=== PATIENT | male | born 1950 | race Two or more races ===

== ENCOUNTER 2017-02-18 23:51 | Emergency (ER) | payer OTHER ==
[~2017-02-18] VITALS: Ht 165.1 cm; Wt 59.0 kg
[2017-02-19 00:02] VITALS: BP 160/138
== END 2017-02-19 01:03 | disposition left against medical advice (07) ==
LOC: ER 23:53
DX: M79.641 Pain in right hand (principal); Z53.21 Procedure and treatment not carried out due to patient leaving prior to being seen by health care provider

== ENCOUNTER 2021-10-30 15:07 | Emergency (ER) | payer SELFPAY ==
[~2021-10-30] VITALS: Ht 170.2 cm; Wt 70.0 kg
[2021-10-30] MEDS ORDERED: SODIUM BICARBONATE 8.4% INJ 50ML SYRINGE IV ONE (15:08)
[2021-10-30] MEDS ORDERED: ATROPINE SULF 1 MG/10ml SYR IV ONE (15:08)
[2021-10-30] MEDS ORDERED: EPINEPHrine HCL 1 MG/10 ML SYRG IV ONE (15:08)
[2021-10-30] MEDS ORDERED: DOPamine 1600mCg/ml 400MG/250ml NSorD5 KIT/BAG IV ONE (15:08)
[2021-10-30] MEDS ORDERED: ROCURONIUM 10MG/ML 10ML VIAL IV ONE (15:26)
[2021-10-30] MEDS ORDERED: ETOMIDATE (2MG/ML) 20ML VIAL IV ONE (15:26)
[2021-10-30] MEDS ORDERED: NOREPINEPHRINE 8 MG/250ML KIT 250 ML IV ONE (15:36)
[2021-10-30] MEDS ORDERED: EPINEPHrine HCL 250 ML IV ONE (15:44)
[2021-10-30 16:00] VITALS: BP 120/76
[2021-10-30] MEDS ORDERED: EPINEPHrine HCL 1 MG/10 ML SYRG ONE ×2 (16:02→16:35)
[2021-10-30] MEDS ORDERED: LIDOCAINE 2%HCL (LOCAL ANESTH.) INJ 20ML MDV ONE (16:05)
[2021-10-30] MEDS ORDERED: IODIXANOL 320MG/ML 100ML BTL IV ONE (16:05)
[2021-10-30] MEDS ORDERED: HEPARIN IN NS 1000Units/500mL 0 ML ONE (16:06)
[2021-10-30] MEDS ORDERED: ATROPINE SULF 1 MG/10ml SYR ONE (16:13)
[2021-10-30] MEDS ORDERED: ANGIOMAX 250 MG VIAL IV ONE (16:13)
[2021-10-30] MEDS ORDERED: SODIUM CHL 0.9% 0 ML ONE (16:13)
[2021-10-30] MEDS ORDERED: NOREPINEPHRINE 8 MG/250ML KIT 250 ML IV SCH (16:15)
[2021-10-30] MEDS ORDERED: DOBUTamine 1000MCG/ML 250 ML IV ONE (16:15)
[2021-10-30] MEDS ORDERED: EPINEPHrine HCL 250 ML IV SCH (16:15)
[2021-10-30] MEDS ORDERED: DOPamine 1600MCG/ML D5W 250 ML IV SCH (16:15)
[2021-10-30 16:55] LABS: INR 1.91 (0.9-1.15)
[2021-10-30 17:08] LABS: Basophils # (auto) 0 10 ^3/uL (0-0.2); Basophils % (auto) 0.1 % (0.0-2.0); Eosinophils # (auto) 0 10 ^3/uL (0-0.8); Eosinophils % (auto) 0.3 % (0.0-7.0); Hematocrit 35.8 % (41.0-53.0); Lymphocytes # (auto) 6.3 10 ^3/uL (0.4-5.4); Lymphocytes % (auto) 53.3 % (10.0-50.0); Mean Corpuscular Hemoglobin 34.1 pg (28.0-32.0); Mean Corpuscular Hgb Conc. 27.8 g/dL (32.0-36.0); Mean Corpuscular Volume 122.7 fL (80.0-100.0); Monocytes # (auto) 0.4 10 ^3/uL (0-1.3); Monocytes % (auto) 3.3 % (0.0-12.0); Neutrophils # (auto) 5.1 10 ^3/uL (1.6-8.6); Red Blood Cells 2.92 10^6/uL (4.5-5.90); Red Cell Distribution Width 21.8 % (11.8-14.3); White Blood Cell 11.9 10^3/uL (4.4-10.8)
[2021-10-30 17:22] LABS: Alkaline Phosphatase 79 U/L (45-117); Aspartate Aminotransferase 1313 U/L (15-37); Bilirubin, Total 0.8 mg/dL (0.2-1.0); GFR African American 36 mL/min; GFR Non-African American 30 mL/min; Total Protein 5.6 g/dL (6.4-8.2)
[2021-10-30 17:40] LABS: Alanine Aminotransferase 1114 U/L (16-61); Anion Gap 23 (5-15); BUN/Creatinine Ratio 8.7; Blood Urea Nitrogen 20 mg/dL (7-18); Chloride 114 mmol/L (98-107); Glucose 329 mg/dL (74-106); Potassium 4.9 mmol/L (3.5-5.1); Sodium 145 mmol/L (136-145)
[2021-10-30 17:41] LABS: Albumin 2.5 g/dL (3.4-5.0); Calcium 8.1 mg/dL (8.5-10.1)
[2021-10-30 17:42] LABS: Carbon Dioxide 8 mmol/L (21-32)
== END 2021-10-30 16:37 ==
LOC: EDBD 15:07 → ER 15:07
DX: I21.3 ST elevation (STEMI) myocardial infarction of unspecified site (principal); I10 Essential (primary) hypertension
CPT/HCPCS: 36415; 36556; 36600; 80053; 82805; 83880; 84484; 85025; 85610; 87070; 87077; 87186; 87205; 92950; 93005; 99285; C1769; C1887; C1894; J0171; J1265; 94002; Q9967